=== PATIENT | male | born 1960 | race Caucasian/White ===

== ENCOUNTER 2018-12-07 18:46 | Emergency (ER) | payer MEDICARE ==
--- NOTE | 2018-12-07 20:01 | EDM.PDOC ---
ED HPI GENERAL MEDICAL PROBLEM - General Chief Complaint: Back Pain or Injury Stated Complaint: PT FELL AND HURT LT SHOULDER Time Seen by Provider: 12/07/18 19:44 - History of Present Illness INITIAL COMMENTS - FREE TEXT/NARRATIVE: HISTORY AND PHYSICAL: History of present illness: The patient is a 58 year-old male who presents with complaints of pain at his left scapula and left posterior ribs after he fell off the back of his pickup truck and impacted upon a. The patient did not his head pass out or blackout and does not have midline back pain but does have a significant past medical history of surgeries on his back. He initially thought his back was what was hurting him and he was concerned about the hardware but now he says it is more his posterior left ribs and shoulder blade. The remainder of the left upper extremity has no tenderness and there are no other injuries to the pelvis hips or lower legs. He has no neck pain no chest pain and no shortness of breath. He says that when he moves the upper extremity on the left elicits the pain. Patient says he was in his usual state of good health prior to these events and was not lightheaded or dizzy and just misstepped. The patient not take any medications prior to coming here. He says that he felt the wind get knocked out of him but he is breathing fine now Review of systems: As per history of present illness and below otherwise all systems reviewed and negative. Past medical history: As per history of present illness and as reviewed below otherwise noncontributory. Surgical history: As per history of present illness and as reviewed below otherwise noncontributory. Social history: No reported history of drug or alcohol abuse. Family history: As per history of present illness and as reviewed below otherwise noncontributory. Physical exam: General: Well-developed well-nourished overweight man who is nontoxic and moves slowly due to some discomfort. He speaking clearly and easily without breathlessness HEENT: Atraumatic, normocephalic, negative for conjunctival pallor or scleral icterus, mucous membranes moist, throat clear, neck supple, nontender, trachea midline. There are no midline step-offs tenderness defects of the cervical spine Lungs: Clear to auscultation, breath sounds equal bilaterally, chest nontender. See back exam Heart: S1S2, regular rate and rhythm no overt murmurs Abdomen: Soft, nondistended, nontender. Negative for masses or hepatosplenomegaly. Negative for costovertebral tenderness.NABS Pelvis: Stable nontender. Genitourinary: Deferred. Rectal: Deferred. Extremities: Atraumatic with full range of motion of all extremities including the left upper extremity, negative for cords or calf pain. Neurovascular unremarkable. Neuro: Awake, alert, oriented. Cranial nerves II through XII unremarkable. Cerebellum unremarkable. Motor and sensory unremarkable throughout. Exam nonfocal. Back: There are no midline step-offs tenderness or defects of the thoracic or lumbar spine and there is a well-healed midline scar traveling the entire length of the thoracic and lumbar spine. The patient is mostly tender with palpation over the left scapula soft tissue area as well as the posterior ribs. There are no defects deformities ecchymosis or erythema seen and no abrasions or soft tissue swelling. When I palpate this area reproduces the patient's pain Diagnostics: X-ray of left ribs with chest, left scapula x-ray Therapeutics: Ice pack, patient declines medications initially After some time in the ED the patient is now requesting pain meds and I will give him Toradol IM [place] by mouth The tele-radiologist contacted us and would like an additional view performed of the chest as he is unsure if there is a pneumothorax. He would like a right side down decubitus of the chest and I have ordered that I reviewed all x-rays and the patient does not have indication of a pneumothorax nor any acute fractures. There are multiple old injuries and chronic-appearing injuries according to the radiologist. The patient admits that he had a significant trauma some years ago causing multiple rib fractures scapula fracture as well as vertebral fractures all of which he says are old. The patient was made aware of these findings and will be discharged Impression: Simple fall with posterior shoulder/scapula and posterior rib contusions Definitive disposition and diagnosis as appropriate pending reevaluation and review of above Left Generalized Pain Score (Numeric/FACES): 8 - Related Data Allergies Allergy/AdvReac Type Severity Reaction Status Date / Time morphine Allergy Headache Verified 12/07/18 19:02 Sulfa (Sulfonamide Allergy Anaphylactic Verified 12/07/18 19:02 Antibiotics) Shock Home Meds: Home Meds Cyclobenzaprine [Flexeril] 10 mg PO BEDTIME PRN 12/07/18 [History] DULoxetine [Cymbalta] 60 mg PO DAILY 12/07/18 [History] Pantoprazole Sodium 40 mg PO DAILY 12/07/18 [History] Tamsulosin HCl [Flomax] 0.4 mg PO DAILY 12/07/18 [History] Thyroid,Pork [Longs Thyroid] 30 mg PO DAILY 12/07/18 [History] Past Medical History Respiratory History: Reports: Other (See Below) Other Respiratory History: asbestos damage Gastrointestinal History: Reports: GERD Genitourinary History: Reports: BPH Musculoskeletal History: Reports: Back Pain, Chronic Endocrine/Metabolic History: Reports: Hypothyroidism - Past Surgical History HEENT Surgical History: Reports: Adenoidectomy, Tonsillectomy GI Surgical History: Reports: Cholecystectomy, Colonoscopy, EGD Musculoskeletal Surgical History: Reports: Arthroscopic Knee, Other (See Below) Other Musculoskeletal Surgeries/Procedures:: back fusion Social & Family History - Family History Family Medical History: Noncontributory - Tobacco Use Smoking Status *Q: Never Smoker - Recreational Drug Use Recreational Drug Use: No ED ROS GENERAL - Review of Systems Review Of Systems: ROS reveals no pertinent complaints other than HPI. ED EXAM, GENERAL - Physical Exam Exam: See Below (See dictation) Course - Vital Signs Last Recorded V/S: Last Vital Signs Temp 35.8 C 12/07/18 18:58 Pulse 87 12/07/18 21:02 Resp 20 12/07/18 21:02 BP 150/87 H 12/07/18 21:02 Pulse Ox 96 12/07/18 21:02 - Orders/Labs/Meds Orders: Active Orders 24 hr Category Date Time Status Ketorolac [Toradol] Med 12/07/18 21:43 Once 60 mg IM ONETIME ONE Meds: Medications Discontinued Medications Generic Name Dose Route Start Last Admin Trade Name Freq PRN Reason Stop Dose Admin Hydrocodone Bitart/Acetaminophen 1 tab 12/07/18 21:37 12/07/18 21:42 [place] 325-7.5 Mg PO 12/07/18 21:38 1 tab ONETIME ONE Administration Departure - Departure Time of Disposition: 21:44 Disposition: Home, Self-Care 01 Condition: Good Clinical Impression: Contusion of rib on left side Qualifiers: Encounter type: initial encounter Qualified Code(s): S20.212A - Contusion of left front wall of thorax, initial encounter Contusion of scapula, left Qualifiers: Encounter type: initial encounter Qualified Code(s): S40.012A - Contusion of left shoulder, initial encounter - Discharge Information Referrals: PCP,None [Primary Care Provider] - Forms: ED Department Discharge Additional Instructions: The following information is given to patients seen in the emergency department who are being discharged to home. This information is to outline your options for follow-up care. We provide all patients seen in our emergency department with a follow-up referral. The need for follow-up, as well as the timing and circumstances, are variable depending upon the specifics of your emergency department visit. If you don't have a primary care physician on staff, we will provide you with a referral. We always advise you to contact your personal physician following an emergency department visit to inform them of the circumstance of the visit and for follow-up with them and/or the need for any referrals to a consulting specialist. The emergency department will also refer you to a specialist when appropriate. This referral assures that you have the opportunity for followup care with a specialist. All of these measure are taken in an effort to provide you with optimal care, which includes your followup. Under all circumstances we always encourage you to contact your private physician who remains a resource for coordinating your care. When calling for followup care, please make the office aware that this follow-up is from your recent emergency room visit. If for any reason you are refused follow-up, please contact the [facility] emergency department at and ask to speak to the emergency department charge nurse. [facility] Primary care- Internal Medicine and Family [address] [address] Use ice to area to reduce swelling and inflammation and expect aches and pains for the next several days. Use [id number] meds such as ibuprofen or Tylenol for pain and inflammation. You been given some tramadol/Ultram which is slightly stronger that you can use her at home or for bedtime along with over- the-counter meds to assist in pain management. Please contact and follow-up with your provider in the clinic or one of hours for reevaluation and further care. Return to ER as needed and as discussed - My Orders Last 24 Hours: My Active Orders 12/07/18 21:43 Ketorolac [Toradol] 60 mg IM ONETIME ONE - Assessment/Plan Last 24 Hours: My Active Orders 12/07/18 21:43 Ketorolac [Toradol] 60 mg IM ONETIME ONE
--- NOTE | 2018-12-07 20:35 | CR ---
2 views of the left scapula. INDICATION: Pain. IMPRESSION: Lucent see body left scapula could be developmental. Additional linear lucency appears stable mature cortical margin but could be related to previous trauma. No fracture is seen on the transscapular view. Probable previous multiple old rib fracture deformities are present. FINDINGS: Narrowing of the glenohumeral joint. Some spinal hardware is suggested on the transscapular view. Lucency of the body of the scapula which could be developmental all normal variant or from previous trauma. Additional rib deformities are present again this could also be secondary to previous trauma. Dictated by Derian Bonilla MD @ Dec 07 2018 8:31PM Signed by Dr. Derian Bonilla @ Dec 07 2018 8:33PM
--- NOTE | 2018-12-07 20:44 | CR ---
INDICATION: Pain TECHNIQUE: Chest and left ribs 2 views. COMPARISON: None FINDINGS: Cardiovascular and mediastinum: Heart size and vasculature are normal in caliber and appearance. Mediastinum is within normal limits. Lungs and pleural spaces: Lungs are clear. No sign of infiltrate or mass. No sign of pleural effusion. Paucity of lung markings involving the lateral aspect of the left upper to mid left hemithorax. Pneumothorax cannot be excluded. Bones and soft tissues: No evidence of acute osseous trauma. Probable remote trauma left upper to mid ribs. IMPRESSION: Paucity of lung markings involving the lateral aspect of the upper to mid left hemithorax. Pneumothorax cannot be excluded. Recommend right side down decubitus film. Findings cusp with Dr. Sweet on 12/07/2018 at 8:40 p.m.. Dictated by Fahad Moore MD @ 12/07/2018 8:42:33 PM Dictated by: Fahad Moore MD @ 12/07/2018 20:42:37 (Electronically Signed)
--- NOTE | 2018-12-07 21:32 | CR ---
INDICATION: Pain TECHNIQUE: Chest 2 views [id number] decubitus film during inspiration and expiration. 9:11 p.m. COMPARISON: 8:06 p.m. FINDINGS: Cardiovascular and mediastinum: Heart size and vasculature are normal in caliber and appearance. Mediastinum is within normal limits. Lungs and pleural spaces: Lungs are clear. No sign of infiltrate or mass. No sign of pleural effusion. No pneumothorax. Bones and soft tissues: Spinal fixation hardware thoracolumbar spine IMPRESSION: No evidence for pneumothorax. Dictated by Fahad Moore MD @ 12/07/2018 9:30:08 PM Dictated by: Fahad Moore MD @ 12/07/2018 21:30:17 (Electronically Signed)
[2018-12-07] MEDS ORDERED: Acetaminophen/HYDROcodone 325-7.5 MG Tab PO ONE (21:37)
[2018-12-07] MEDS ORDERED: Ketorolac 60 MG/2 ML SDV IM ONE (21:43)
== END 2018-12-07 22:04 | disposition home or self-care (01) ==
LOC: MW.ED 18:46
DX: S20.212A Contusion of left front wall of thorax, initial encounter (principal); S40.012A Contusion of left shoulder, initial encounter; Z88.5 Allergy status to narcotic agent; Z88.2 Allergy status to sulfonamides; V98.8XXA Other specified transport accidents, initial encounter
CPT/HCPCS: 71045; 71101; 73010; 96372; 99283; A9270; J1885